=== PATIENT | female | born 1960 | race Caucasian/White ===

== ENCOUNTER 2018-12-11 11:30 | Day surgery (SDC) | payer OTHER ==
[~2018-12-11 11:30] MED LIST: Fluorouracil 100 MG, Enoxaparin Sodium 25 MG, EPINEPHrine 0.3 MG in Ophthalmic Irrigati... IRR SCH
[2018-12-11] MEDS ORDERED: Phenylephrine 2.5% Ophth Soln 5 ML BOT ONE (12:04)
[2018-12-11] MEDS ORDERED: Cyclopentolate 1% Opth Drop 2 ML BOT ONE (12:04)
[2018-12-11] MEDS ORDERED: Fentanyl 100 MCG/2 ML VIAL ONE (13:14)
[2018-12-11] MEDS ORDERED: Midazolam HCl 2 mg/2 ml Vial ONE (13:14)
--- NOTE | 2018-12-11 22:39 | OP ---
DATE OF PROCEDURE: 12/11/2018 PREOPERATIVE DIAGNOSIS: Rhegmatogenous retinal detachment, right eye. POSTOPERATIVE DIAGNOSIS: Rhegmatogenous retinal detachment, right eye. PROCEDURE: Pars plana vitrectomy and retinal detachment repair, right eye. ANESTHESIA: Local with monitored anesthesia care. PROCEDURE IN DETAIL: The patient was identified in preoperative holding area. Appropriate informed consent for the planned surgical procedure on the right side had been obtained. The patient was transported to the operative suite. Appropriate cardiopulmonary monitoring was established. Local anesthesia was obtained using retrobulbar modified Van Lint lid block using 50:50 mixture of 4% lidocaine and 0.75% bupivacaine. The patient was prepped and draped in usual sterile manner for ophthalmic surgery of right eye. Lid speculum was placed in the right eye. A 25-gauge trocar was placed in conjunctiva and sclera superotemporally, inferotemporally, and supranasally. Infusion line was placed inferotemporally. Light pipe vitreous cutter was inserted to the eye. Core vitrectomy was performed. Scleral depression revealed a horseshoe tear at 12 o'clock. A posterior drained retinotomy was created inferior to the nerve. Complete air-fluid exchange was performed with 10 minutes being left for fluid to drain posteriorly. Prophylactic laser was placed in the superior 6 o'clock hours. 28% sulfur hexafluoride gas was infused into the eye. Trocars were removed. The eye was noted to refrain pressure well. Retrobulbar Kenalog and subconjunctival Ancef were placed. Antibiotic ointment was placed. Eye was patched and shielded. The patient was taken to postoperative recovery unit in good condition having suffered no immediate perioperative complications. The patient was instructed to keep patch and shield on, avoid lifting or bending. Followup appointment with Dr. Mcnair. Job ID: [id number]
== END 2018-12-11 14:58 | disposition home or self-care (01) ==
LOC: SDC 11:30
PROVIDERS: ATTEND Ophthalmology Retina Specialist
PROC: 08T43ZZ Resection of Right Vitreous, Percutaneous Approach (ICD-10-PCS; principal; 2018-12-11)
DX: H33.001 Unspecified retinal detachment with retinal break, right eye (principal); I10 Essential (primary) hypertension; E66.9 Obesity, unspecified; Z88.1 Allergy status to other antibiotic agents; Z88.2 Allergy status to sulfonamides
CPT/HCPCS: 67025; J0171; J1650; J2250; J3010; J9190